=== PATIENT | female | born 1985 | race Two or more races ===

== ENCOUNTER 2018-07-13 11:47 | Outpatient (CLI) | payer BC | END 2018-07-13 23:59 | disposition home or self-care (01) | LOC: LAB 11:47 | PROVIDERS: ATTEND Family Medicine | DX: Z12.4 Encounter for screening for malignant neoplasm of cervix (principal); Z11.3 Encounter for screening for infections with a predominantly sexual mode of transmission | CPT/HCPCS: 36415; 88142 ==

== ENCOUNTER 2018-08-04 13:22 | Outpatient (CLI) | payer BC | END 2018-08-04 23:59 | disposition home or self-care (01) | LOC: LAB 13:22 | PROVIDERS: ATTEND Family Medicine | DX: R87.615 Unsatisfactory cytologic smear of cervix (principal) | CPT/HCPCS: 88142 ==

== ENCOUNTER 2020-02-18 09:04 | Outpatient (CLI) | payer BC ==
[2020-02-18 10:09] LABS: BASOPHILS % (AUTO) 0.2 % (0.0-2.0); HEMATOCRIT 39 % (33-45); HEMOGLOBIN 12.8 g/dL (11.5-14.8); LYMPHOCYTES # (AUTO) 1.2 /CMM (0.8-4.8); LYMPHOCYTES % (AUTO) 14.3 % (20.0-44.0); MEAN CORPUSCULAR HGB CONC 33 g/dl (31.0-36.0); MEAN CORPUSCULAR VOLUME 87 fL (82-100); MONOCYTES # (AUTO) 0.5 /CMM (0.1-1.30); MONOCYTES % (AUTO) 5.9 % (2.0-12.0); NEUTROPHILS # (AUTO) 6.5 /CMM (1.8-8.9); NEUTROPHILS % (AUTO) 78.6 % (43.0-81.0); PLATELET COUNT (AUTO) 246 /CMM (150-450); RED BLOOD CELL COUNT(AUTO) 4.48 MIL/uL (4.0-5.2); WHITE BLOOD COUNT (AUTO) 8.3 K/uL (4.3-11.0)
== END 2020-02-18 23:59 | disposition home or self-care (01) ==
LOC: LAB 09:04
PROVIDERS: ATTEND Obstetrics & Gynecology
DX: Z33.1 Pregnant state, incidental (principal)
CPT/HCPCS: 36415; 82947-TC; 85025-TC

== ENCOUNTER 2020-04-17 10:15 | Outpatient (CLI) | payer BC | END 2020-04-17 23:59 | disposition home or self-care (01) | LOC: LAB 10:15 | PROVIDERS: ATTEND Obstetrics & Gynecology | DX: E84.9 Cystic fibrosis, unspecified (principal) | CPT/HCPCS: 36415; 86480 ==

== ENCOUNTER 2021-12-06 10:26 | Outpatient (CLI) | payer BC ==
[2021-12-06 13:02] LABS: ALBUMIN 4.3 g/dL (3.4-5.0); BILIRUBIN,DIRECT 0.2 mg/dL (0.0-0.2); BILIRUBIN,TOTAL 0.8 mg/dL (0.2-1.0); TOTAL PROTEIN, SERUM 8.1 g/dL (6.4-8.2)
== END 2021-12-06 23:59 | disposition home or self-care (01) ==
LOC: LAB 10:26
PROVIDERS: ATTEND Family Medicine
DX: R94.5 Abnormal results of liver function studies (principal)
CPT/HCPCS: 36415; 80076-TC; 86317; 86709-TC; 86803